=== PATIENT | female | born 1980 | race Caucasian/White ===

== ENCOUNTER 2017-04-13 13:41 | Emergency (ER) | payer SELFPAY ==
[~2017-04-13] VITALS: Ht 154.9 cm; Wt 90.0 kg
[~2017-04-13 13:41] MED LIST: ALBUTEROL2.5 MG/31 IN; AMOXICILLIN500 MG OR; AUGMENTIN875TAB OR; BACTRIM DS1 TAB PO; BIRTH CONTROL; CEPHALEXIN500 M1 OR; CHERATUSSIN OR; DOXYCYCL HYC100 M3 PO; FERROUS SULF324 MG PO; FLAGYL500 MG OR; IRON; LORTAB 5 OR; NO HOME MEDS; PRILOSEC20 MG/CAP PO; ROBITUSSIN AC10 ML OR; ROCEPHIN 2250 MG/VIA IM; SEASONALE OR; SPRINTEC 2828 DAY PO; ULTRAM50 M1 PO; ULTRAM50 MG OR; VIBRAMYCIN100 M1 OR; ZITHROMAX250 MG PO; ZITHROMAX500 MG OR; ZOFRAN ODT4 MG SL
[2017-04-13 14:30] LABS: HEMATOCRIT 33.9 % (37.0-47.0); HEMOGLOBIN 9.8 g/dl (12.0-16.0); IMMATURE GRANULOCYTES 0.3 % (0.0-1.0); MEAN CELL VOLUME 72.4 fL CALC (80.0-100.0); MEAN CORPUSCULAR HGB 20.9 pG CALC (26.0-32.0); MEAN CORPUSCULAR HGB CONC 28.9 g/L CALC (32.0-36.0); NEUT# 8.09 thou/uL (2.00-7.15); RED BLOOD COUNT 4.68 mill/uL (4.20-5.60); RED CELL DISTRI WIDTH 17.1 % (11.5-15.5); URINE BLOOD DIPSTICK NEGATIVE (NEGATIVE); URINE GLUCOSE - DIPSTICK 100 mg/dL (NEGATIVE); URINE KETONE NEGATIVE (NEGATIVE); URINE LEUK ESTERASE TRACE (NEGATIVE); URINE PH 5.5 (4.5-8.0); URINE PROTEIN - DIPSTICK 30 mg/dL (NEG-TRACE); URINE SPECIFIC GRAVITY <=1.005
[2017-04-13 14:34] LABS: URINE BILIRUBIN - DIPSTICK SMALL (NEGATIVE); URINE NITRITE - DIPSTICK POSITIVE (Negative)
[2017-04-13 14:35] LABS: URINE CLARITY TURBID; URINE COLOR ORANGE
[2017-04-13 14:37] LABS: URINE AMORPH SEDIMENT FEW hpf (NONE-FEW); URINE BACTERIA RARE hpf; URINE SQUAMOUS EPITHELIAL CELL FEW EPI/hpf (0-FEW)
[2017-04-13 14:44] LABS: ALBUMIN 4.5 g/dL (3.2-5.0); ALKALINE PHOSPHATASE 71 u/l (38-126); AMYLASE 68 u/l (30-110); ANION GAP 15 (6-22 (CALC)); BILIRUBIN, TOTAL 0.4 mg/dL (0.0-1.4); BUN 9 mg/dL (7-17); BUN/CREATININE RATIO 15 (12-20 (CALC)); CALCIUM 9.5 mg/dL (8.4-10.2); CARBON DIOXIDE 22 mmol/l (22-30); CHLORIDE 104 mmol/l (95-108); CREATININE 0.6 mg/dL (0.5-1.0); GFR > 60 ML/MIN (>=60 (CALC)); GFR FOR AFR.AMER. > 60 ML/MIN (>=60 (CALC)); GLUCOSE 87 mg/dL (65-105); LIPASE 82 u/l (23-300); POTASSIUM 4.1 mmol/l (3.5-5.1); SGOT/AST 20 u/l (14-36); SGPT/ALT 35 u/l (9-52); SODIUM 137 mmol/l (137-146); TOTAL PROTEIN 7.6 g/dL (6.3-8.2)
[2017-04-13] MEDS ORDERED: LORTAB 5-325 MG1 TAB PO (15:24)
[2017-04-13] MEDS ORDERED: BACTRIM DS1 TAB PO (15:24)
[2017-04-13 16:03] VITALS: BP 132/66
== END 2017-04-13 16:09 | disposition home or self-care (01) | DRG 690 ==
LOC: ED 13:41
PROVIDERS: Emergency Medicine
DX: N12 Tubulo-interstitial nephritis, not specified as acute or chronic (principal); B96.20 Unspecified Escherichia coli [E. coli] as the cause of diseases classified elsewhere; F17.210 Nicotine dependence, cigarettes, uncomplicated

== ENCOUNTER 2017-05-15 12:10 | Emergency (ER) | payer SELFPAY ==
[~2017-05-15] VITALS: Ht 154.9 cm; Wt 95.2 kg
[~2017-05-15 12:10] MED LIST changes: +LORTAB 5-325 MG1 TAB PO
[2017-05-15] MEDS ORDERED: PREDNISONE50 MG PO (15:07)
[2017-05-15 15:47] VITALS: BP 113/60
== END 2017-05-15 15:47 | disposition home or self-care (01) | DRG 93 ==
LOC: ED 12:10
DX: R20.9 Unspecified disturbances of skin sensation (principal); E04.9 Nontoxic goiter, unspecified; R01.1 Cardiac murmur, unspecified; F17.210 Nicotine dependence, cigarettes, uncomplicated

== ENCOUNTER 2017-11-06 22:42 | Emergency (ER) | payer OTHER ==
[~2017-11-06] VITALS: Ht 154.9 cm; Wt 97.6 kg
[~2017-11-06 22:42] MED LIST changes: +PREDNISONE50 MG PO
[2017-11-07 00:08] LABS: HEMATOCRIT 33.8 % (37.0-47.0); IMMATURE GRANULOCYTES 0.5 % (0.0-1.0); MEAN CORPUSCULAR HGB 22.5 pG CALC (26.0-32.0); MEAN CORPUSCULAR HGB CONC 29.6 g/L CALC (32.0-36.0); NEUT# 9.05 thou/uL (2.00-7.15); RED BLOOD COUNT 4.45 mill/uL (4.20-5.60); RED CELL DISTRI WIDTH 17.1 % (11.5-15.5)
[2017-11-07 00:11] LABS: URINE BILIRUBIN - DIPSTICK NEGATIVE (NEGATIVE); URINE BLOOD DIPSTICK LARGE (NEGATIVE); URINE COLOR RED; URINE GLUCOSE - DIPSTICK NEGATIVE (NEGATIVE); URINE KETONE NEGATIVE (NEGATIVE); URINE LEUK ESTERASE NEGATIVE (NEGATIVE); URINE NITRITE - DIPSTICK NEGATIVE (Negative); URINE PH 5.5 (4.5-8.0); URINE PROTEIN - DIPSTICK 100 mg/dL (NEG-TRACE); URINE SPECIFIC GRAVITY 1.025; URINE UROBILINOGEN - DIPSTICK 0.2 E.U./dL (0.2)
[2017-11-07 00:20] LABS: URINE CLARITY CLEAR
[2017-11-07 00:22] LABS: URINE BACTERIA MANY hpf; URINE RBC 0-2 RBC/hpf (0-5); URINE SQUAMOUS EPITHELIAL CELL RARE EPI/hpf (0-FEW)
[2017-11-07] MEDS ORDERED: ZANTAC 150 MAX150 MG PO (00:34)
[2017-11-07 00:36] LABS: ALBUMIN 4.1 g/dL (3.2-5.0); ALKALINE PHOSPHATASE 79 u/l (38-126); AMYLASE 42 u/l (30-110); ANION GAP 16 (6-22 (CALC)); BILIRUBIN, TOTAL 0.2 mg/dL (0.0-1.4); BUN 11 mg/dL (7-17); BUN/CREATININE RATIO 15 (12-20 (CALC)); CARBON DIOXIDE 22 mmol/l (22-30); CHLORIDE 107 mmol/l (95-108); CREATININE 0.7 mg/dL (0.5-1.0); GFR > 60 ML/MIN (>=60 (CALC)); GFR FOR AFR.AMER. > 60 ML/MIN (>=60 (CALC)); LIPASE 150 u/l (23-300); POTASSIUM 4.2 mmol/l (3.5-5.1); SGOT/AST 18 u/l (14-36); SGPT/ALT 25 u/l (9-52); SODIUM 140 mmol/l (137-146); TOTAL PROTEIN 6.4 g/dL (6.3-8.2)
[2017-11-07] MEDS ORDERED: PROTONIX40 MG PO (03:23)
[2017-11-07] MEDS ORDERED: CIPROFLOXACN500 MG PO (03:23)
[2017-11-07 03:43] VITALS: BP 102/56
== END 2017-11-07 03:40 | disposition home or self-care (01) | DRG 690 ==
LOC: ED 22:42
PROVIDERS: Emergency Medicine
DX: N39.0 Urinary tract infection, site not specified (principal); R10.11 Right upper quadrant pain; R10.13 Epigastric pain; R11.2 Nausea with vomiting, unspecified
CPT/HCPCS: S0164

== ENCOUNTER 2018-07-24 15:34 | Emergency (ER) | payer SELFPAY ==
[~2018-07-24] VITALS: Ht 154.9 cm; Wt 96.0 kg
[~2018-07-24 15:34] MED LIST changes: +CIPROFLOXACN500 MG PO; +PROTONIX40 MG PO; +ZANTAC 150 MAX150 MG PO
[2018-07-24] MEDS ORDERED: CRESTOR5 M1 PO (15:51)
[2018-07-24 16:37] LABS: HEMATOCRIT 33.9 % (37.0-47.0); HEMOGLOBIN 9.6 g/dl (12.0-16.0); IMMATURE GRANULOCYTES 0.4 % (0.0-5.0); MEAN CELL VOLUME 74.2 fL CALC (80.0-100.0); MEAN CORPUSCULAR HGB CONC 28.3 g/L CALC (32.0-36.0); NEUT# 9.99 thou/uL (2.00-7.15); RED BLOOD COUNT 4.57 mill/uL (4.20-5.60); RED CELL DISTRI WIDTH 17.6 % (11.5-15.5)
[2018-07-24 16:39] LABS: URINE BILIRUBIN - DIPSTICK NEGATIVE (NEGATIVE); URINE BLOOD DIPSTICK NEGATIVE (NEGATIVE); URINE CLARITY CLEAR; URINE COLOR YELLOW; URINE GLUCOSE - DIPSTICK NEGATIVE (NEGATIVE); URINE KETONE NEGATIVE (NEGATIVE); URINE LEUK ESTERASE NEGATIVE (NEGATIVE); URINE NITRITE - DIPSTICK NEGATIVE (Negative); URINE PROTEIN - DIPSTICK TRACE mg/dL (NEG-TRACE); URINE SPECIFIC GRAVITY >=1.030; URINE UROBILINOGEN - DIPSTICK 0.2 E.U./dL (0.2)
[2018-07-24 17:03] LABS: ALBUMIN 4.4 g/dL (3.2-5.0); ALKALINE PHOSPHATASE 69 u/l (38-126); AMYLASE 73 u/l (30-110); ANION GAP 15 (6-22 (CALC)); BILIRUBIN, TOTAL 0.6 mg/dL (0.0-1.4); BUN 7 mg/dL (7-17); BUN/CREATININE RATIO 13 (12-20 (CALC)); CARBON DIOXIDE 22 mmol/l (22-30); CHLORIDE 105 mmol/l (95-108); CREATININE 0.5 mg/dL (0.5-1.0); GFR > 60 ML/MIN (>=60 (CALC)); GFR FOR AFR.AMER. > 60 ML/MIN (>=60 (CALC)); LIPASE 78 u/l (23-300); POTASSIUM 4.4 mmol/l (3.5-5.1); SODIUM 138 mmol/l (137-146)
[2018-07-24 17:06] LABS: SGOT/AST 48 u/l (14-36); TOTAL PROTEIN 7.7 g/dL (6.3-8.2)
[2018-07-24] MEDS ORDERED: BACTRIM DS1 TAB PO (17:32)
[2018-07-24] MEDS ORDERED: PRILOSEC20 MG PO (17:32)
[2018-07-24] MEDS ORDERED: VENTOLIN HFA IN (17:32)
[2018-07-24 17:36] VITALS: BP 141/91
== END 2018-07-24 17:51 | disposition home or self-care (01) | DRG 153 ==
LOC: ED 15:34
PROVIDERS: Family Medicine
DX: J01.90 Acute sinusitis, unspecified (principal); F17.210 Nicotine dependence, cigarettes, uncomplicated; R10.13 Epigastric pain; J98.01 Acute bronchospasm; R05 Cough; R51 Headache; R42 Dizziness and giddiness; R09.81 Nasal congestion; R11.0 Nausea

== ENCOUNTER 2018-11-09 12:31 | Emergency (ER) | payer SELFPAY ==
[~2018-11-09] VITALS: Ht 154.9 cm; Wt 85.0 kg
[~2018-11-09 12:31] MED LIST changes: +CRESTOR5 M1 PO; +PRILOSEC20 MG PO; +VENTOLIN HFA IN
[2018-11-09] MEDS ORDERED: VOLTAREN1%GEL TOP (14:36)
[2018-11-09] MEDS ORDERED: MOTRIN400 MG PO (14:36)
[2018-11-09] MEDS ORDERED: CYCLOBENZAPR5 MG PO (14:36)
[2018-11-09 14:57] VITALS: BP 124/77
[2018-11-09] MEDS ORDERED: ZPAK PO (14:59)
== END 2018-11-09 14:57 | disposition home or self-care (01) | DRG 563 ==
LOC: ED 12:31
DX: S29.012A Strain of muscle and tendon of back wall of thorax, initial encounter (principal); E78.5 Hyperlipidemia, unspecified; F17.210 Nicotine dependence, cigarettes, uncomplicated; X50.9XXA Other and unspecified overexertion or strenuous movements or postures, initial encounter

== ENCOUNTER 2018-12-09 17:46 | Emergency (ER) | payer SELFPAY ==
[~2018-12-09] VITALS: Ht 154.9 cm; Wt 91.0 kg
[~2018-12-09 17:46] MED LIST changes: +CYCLOBENZAPR5 MG PO; +MOTRIN400 MG PO; +VOLTAREN1%GEL TOP; +ZPAK PO
[2018-12-09 18:33] LABS: URINE BILIRUBIN - DIPSTICK NEGATIVE (NEGATIVE); URINE BLOOD DIPSTICK NEGATIVE (NEGATIVE); URINE COLOR YELLOW; URINE GLUCOSE - DIPSTICK NEGATIVE (NEGATIVE); URINE KETONE NEGATIVE (NEGATIVE); URINE LEUK ESTERASE NEGATIVE (NEGATIVE); URINE NITRITE - DIPSTICK NEGATIVE (Negative); URINE PROTEIN - DIPSTICK NEGATIVE (NEG-TRACE); URINE UROBILINOGEN - DIPSTICK 0.2 E.U./dL (0.2)
[2018-12-09 18:37] LABS: BARBITURATES NEGATIVE (NEGATIVE); COCAINE NEGATIVE (NEGATIVE); METHADONE NEGATIVE (NEGATIVE); OXCYCODONE NEGATIVE (NEGATIVE); TETRAHYDROCANNABIONOL NEGATIVE (NEGATIVE); TRICYLIC ANTIDEPRESSANTS POSITIVE (NEGATIVE)
[2018-12-09] MEDS ORDERED: TRAMADOL HYDROC50 MG PO (21:16)
[2018-12-09] MEDS ORDERED: ROBITUSSIN AC10 ML PO (21:16)
[2018-12-09 21:25] VITALS: BP 106/72
== END 2018-12-09 21:25 | disposition home or self-care (01) | DRG 185 ==
LOC: ED 17:46
DX: S22.41XA Multiple fractures of ribs, right side, initial encounter for closed fracture (principal); R05 Cough; M54.5 Low back pain; X50.0XXA Overexertion from strenuous movement or load, initial encounter; Y92.009 Unspecified place in unspecified non-institutional (private) residence as the place of occurrence of the external cause; F17.210 Nicotine dependence, cigarettes, uncomplicated

== ENCOUNTER 2019-02-07 08:32 | Emergency (ER) | payer SELFPAY ==
[~2019-02-07] VITALS: Ht 154.9 cm; Wt 70.0 kg
[~2019-02-07 08:32] MED LIST changes: +ROBITUSSIN AC10 ML PO; +TRAMADOL HYDROC50 MG PO
[2019-02-07] MEDS ORDERED: MAPAP500 M1 PO (09:12)
[2019-02-07] MEDS ORDERED: MOTRIN400 MG/TAB PO (09:13)
[2019-02-07] MEDS ORDERED: VITAMIN D1000 UNIT PO (09:14)
[2019-02-07] MEDS ORDERED: MUCINEX600 MG PO (09:14)
[2019-02-07] MEDS ORDERED: FERROUS FUM324 MG PO (09:14)
[2019-02-07 09:43] LABS: HEMATOCRIT 35.6 % (37.0-47.0); HEMOGLOBIN 10.4 g/dl (12.0-16.0); IMMATURE GRANULOCYTES 0.6 % (0.0-5.0); MEAN CELL VOLUME 77.4 fL CALC (80.0-100.0); MEAN CORPUSCULAR HGB 22.6 pG CALC (26.0-32.0); MEAN CORPUSCULAR HGB CONC 29.2 g/L CALC (32.0-36.0); NEUT# 11.42 thou/uL (2.00-7.15); RED BLOOD COUNT 4.6 mill/uL (4.20-5.60)
[2019-02-07] MEDS ORDERED: CRESTOR20 MG PO (09:47)
[2019-02-07 10:09] LABS: ANION GAP 13 (6-22 (CALC)); BUN 8 mg/dL (7-17); BUN/CREATININE RATIO 16 (12-20 (CALC)); CARBON DIOXIDE 23 mmol/l (22-30); CHLORIDE 106 mmol/l (95-108); CREATININE 0.5 mg/dL (0.5-1.0); GFR > 60 ML/MIN (>=60 (CALC)); GFR FOR AFR.AMER. > 60 ML/MIN (>=60 (CALC)); POTASSIUM 4.6 mmol/l (3.5-5.1); SODIUM 138 mmol/l (137-146)
[2019-02-07] MEDS ORDERED: PREDNISONE50 MG PO (10:36)
[2019-02-07] MEDS ORDERED: FLONASE AL50 MCG/ACT (10:36)
[2019-02-07] MEDS ORDERED: DOXYCYC MONO100 M2 PO (10:36)
[2019-02-07 10:48] VITALS: BP 112/56
[2019-02-07] MEDS ORDERED: CYCLOBENZAPR5 MG PO (10:52)
== END 2019-02-07 10:56 | disposition home or self-care (01) | DRG 203 ==
LOC: ED 08:32
PROVIDERS: Family Medicine
DX: J40 Bronchitis, not specified as acute or chronic (principal); R09.82 Postnasal drip; F17.210 Nicotine dependence, cigarettes, uncomplicated

== ENCOUNTER 2019-09-20 | Emergency (ER) | payer SELFPAY ==
[~2019-09-20] MED LIST changes: +CRESTOR20 MG PO; +DOXYCYC MONO100 M2 PO; +FERROUS FUM324 MG PO; +FLONASE AL50 MCG/ACT; +MAPAP500 M1 PO; +MOTRIN400 MG/TAB PO; +MUCINEX600 MG PO; +VITAMIN D1000 UNIT PO
[2019-09-20] MEDS ORDERED: AMOX/K CLAV875 M1 PO (15:43)
[2019-09-20] MEDS ORDERED: MEDDOSEPAK PO (17:30)
[2019-09-20] MEDS ORDERED: ZITHROMAX250 MG PO (17:30)
[2019-09-20] MEDS ORDERED: TAM75CAP PO (17:30)
[2019-09-20] MEDS ORDERED: PROVENTIL108 MCG/AC IN (17:30)
== END 2019-09-20 17:50 | disposition home or self-care (01) | DRG 195 ==
DX: J10.1 Influenza due to other identified influenza virus with other respiratory manifestations (principal); J45.909 Unspecified asthma, uncomplicated; J32.9 Chronic sinusitis, unspecified; F17.210 Nicotine dependence, cigarettes, uncomplicated

== ENCOUNTER 2019-10-18 | Emergency (ER) | payer OTHER ==
[~2019-10-18] MED LIST changes: +AMOX/K CLAV875 M1 PO; +MEDDOSEPAK PO; +PROVENTIL108 MCG/AC IN; +TAM75CAP PO
== END 2019-10-18 21:13 | disposition home or self-care (01) | DRG 605 ==
DX: S50.11XA Contusion of right forearm, initial encounter (principal); F17.210 Nicotine dependence, cigarettes, uncomplicated; W22.8XXA Striking against or struck by other objects, initial encounter; Y93.89 Activity, other specified; Y92.89 Other specified places as the place of occurrence of the external cause; Y99.0 Civilian activity done for income or pay

== ENCOUNTER 2021-04-20 14:51 | Emergency (ER) | payer SELFPAY ==
[~2021-04-20] VITALS: Ht 154.9 cm; Wt 104.0 kg
[2021-04-20 16:18] LABS: HEMATOCRIT 31.1 % (37.0-47.0); HEMOGLOBIN 8.6 g/dl (12.0-16.0); IMMATURE GRANULOCYTES 0.2 % (0.0-5.0); MEAN CELL VOLUME 74.4 fL CALC (80.0-100.0); MEAN CORPUSCULAR HGB 20.6 pG CALC (26.0-32.0); MEAN CORPUSCULAR HGB CONC 27.7 g/dL CAL (32.0-36.0); NEUT# 10.43 thou/uL (2.00-7.15); RED BLOOD COUNT 4.18 mill/uL (4.20-5.60); RED CELL DISTRI WIDTH 16.6 % (11.5-15.5)
[2021-04-20 16:32] LABS: ALBUMIN 3.8 g/dL (3.2-5.0); ALKALINE PHOSPHATASE 64 u/l (38-126); AMYLASE 60 u/l (30-110); ANION GAP 12 (6-22 (CALC)); BUN 7 mg/dL (7-17); BUN/CREATININE RATIO 14 (12-20 (CALC)); CARBON DIOXIDE 25 mmol/l (22-30); CHLORIDE 102 mmol/l (95-108); CREATININE 0.5 mg/dL (0.5-1.0); GFR > 60 ML/MIN (>=60 (CALC)); GFR FOR AFR.AMER. > 60 ML/MIN (>=60 (CALC)); LIPASE 93 u/l (23-300); POTASSIUM 3.7 mmol/l (3.5-5.1); SGOT/AST 22 u/l (14-36); SODIUM 135 mmol/l (137-146); TOTAL PROTEIN 6.8 g/dL (6.3-8.2)
[2021-04-20 16:42] LABS: MYOGLOBIN 16 ng/mL (0 - 62)
[2021-04-20 16:43] LABS: BILIRUBIN, TOTAL 0.2 mg/dL (0.0-1.4)
[2021-04-20 18:28] LABS: URINE BILIRUBIN - DIPSTICK NEGATIVE (NEGATIVE); URINE BLOOD DIPSTICK MODERATE (NEGATIVE); URINE COLOR YELLOW; URINE GLUCOSE - DIPSTICK NEGATIVE (NEGATIVE); URINE KETONE NEGATIVE (NEGATIVE); URINE LEUK ESTERASE NEGATIVE (NEGATIVE); URINE PROTEIN - DIPSTICK NEGATIVE (NEG-TRACE); URINE UROBILINOGEN - DIPSTICK 0.2 E.U./dL (0.2)
[2021-04-20 18:29] LABS: URINE NITRITE - DIPSTICK NEGATIVE (Negative)
[2021-04-20 18:38] LABS: URINE RBC 0-2 RBC/hpf (0-5); URINE SQUAMOUS EPITHELIAL CELL MODERATE EPI/hpf (0-FEW)
[2021-04-20] MEDS ORDERED: LOMOTIL2.5 MG PO (18:47)
[2021-04-20] MEDS ORDERED: REGLAN10 MG PO (18:47)
[2021-04-20] MEDS ORDERED: PREVACID30 M3 PO (18:47)
[2021-04-20 18:49] VITALS: BP 147/63
== END 2021-04-20 19:14 | disposition home or self-care (01) | DRG 392 ==
LOC: ED 14:51
PROVIDERS: Emergency Medicine
DX: K52.9 Noninfective gastroenteritis and colitis, unspecified (principal); K44.9 Diaphragmatic hernia without obstruction or gangrene; E78.5 Hyperlipidemia, unspecified; F17.210 Nicotine dependence, cigarettes, uncomplicated; Z20.822 Contact with and (suspected) exposure to COVID-19
CPT/HCPCS: Q9967

== ENCOUNTER 2021-12-31 22:07 | Emergency (ER) | payer SELFPAY ==
[~2021-12-31] VITALS: Ht 154.9 cm; Wt 91.0 kg
[~2021-12-31 22:07] MED LIST changes: +LOMOTIL2.5 MG PO; +PREVACID30 M3 PO; +REGLAN10 MG PO
[2021-12-31 22:21] VITALS: BP 126/68
[2021-12-31 22:30] VITALS: BP 112/73
[2021-12-31 22:59] LABS: HEMATOCRIT 33.5 % (37.0-47.0); HEMOGLOBIN 9.3 g/dl (12.0-16.0); IMMATURE GRANULOCYTES 0.2 % (0.0-5.0); MEAN CORPUSCULAR HGB 21.1 pG CALC (26.0-32.0); MEAN CORPUSCULAR HGB CONC 27.8 g/dL CAL (32.0-36.0); NEUT# 8.82 thou/uL (2.00-7.15); RED BLOOD COUNT 4.41 mill/uL (4.20-5.60); RED CELL DISTRI WIDTH 18.8 % (11.5-15.5)
[2021-12-31 23:08] VITALS: BP 120/69
[2021-12-31 23:15] VITALS: BP 105/63
[2021-12-31 23:19] LABS: ALBUMIN 4.1 g/dL (3.2-5.0); ALKALINE PHOSPHATASE 72 u/l (38-126); ANION GAP 13 (6-22 (CALC)); BILIRUBIN, TOTAL 0.2 mg/dL (0.0-1.4); BUN 10 mg/dL (7-17); BUN/CREATININE RATIO 18 (12-20 (CALC)); CARBON DIOXIDE 25 mmol/l (22-30); CHLORIDE 105 mmol/l (95-108); CREATININE 0.6 mg/dL (0.5-1.0); GFR > 60 ML/MIN (>=60 (CALC)); GFR FOR AFR.AMER. > 60 ML/MIN (>=60 (CALC)); POTASSIUM 4.2 mmol/l (3.5-5.1); SGOT/AST 21 u/l (14-36); SODIUM 138 mmol/l (137-146); TOTAL PROTEIN 6.8 g/dL (6.3-8.2)
[2021-12-31 23:45] VITALS: BP 119/66
[2021-12-31 23:50] LABS: TSH, 3RD GENERATION 1.38 uIU/mL (0.47 - 4.68)
[2022-01-01] MEDS ORDERED: FLONASE AL50 MCG/ACT (00:20)
[2022-01-01] MEDS ORDERED: ALLEGRA-D 2424 HOUR PO (00:20)
[2022-01-01] MEDS ORDERED: BACTRIM DS1 TAB PO (00:20)
[2022-01-01 00:51] VITALS: BP 119/66
== END 2022-01-01 01:15 | disposition home or self-care (01) | DRG 153 ==
LOC: ED 22:07
PROVIDERS: Family Medicine
DX: J32.9 Chronic sinusitis, unspecified (principal); L29.9 Pruritus, unspecified; E78.5 Hyperlipidemia, unspecified; F17.200 Nicotine dependence, unspecified, uncomplicated

== ENCOUNTER 2023-05-29 18:08 | Emergency (ER) | payer OTHER ==
[~2023-05-29] VITALS: Ht 154.9 cm; Wt 92.0 kg
[2023-05-29] VITALS (10 sets, daily range): BP systolic 101–125; BP diastolic 56–78
[~2023-05-29 18:08] MED LIST changes: +ALLEGRA-D 2424 HOUR PO
[2023-05-29] MEDS ORDERED: VOLTAREN - GENE75 MG PO (20:14)
== END 2023-05-29 20:38 | disposition home or self-care (01) | DRG 552 ==
LOC: ED 18:08
DX: S16.1XXA Strain of muscle, fascia and tendon at neck level, initial encounter (principal); E78.5 Hyperlipidemia, unspecified; F17.210 Nicotine dependence, cigarettes, uncomplicated; V43.53XA Car driver injured in collision with pick-up truck in traffic accident, initial encounter

== ENCOUNTER 2024-11-13 18:51 | Emergency (ER) | payer SELFPAY ==
[~2024-11-13] VITALS: Ht 154.9 cm; Wt 92.0 kg
[~2024-11-13 18:51] MED LIST changes: +VOLTAREN - GENE75 MG PO
[2024-11-13] MEDS ORDERED: ALBUTEROL SULFATE 2.5 MG VIAL IN ONE (19:25)
[2024-11-13] MEDS ORDERED: IPRATROPIUM-Albuterol 0.5MG-2.5MG/3 ML NEB ONE (19:25)
[2024-11-13] MEDS ORDERED: predniSONE 20 MG/TAB PO ONE (19:25)
[2024-11-13] MEDS ORDERED: DOXYCYCLINE100 MG PO (21:10)
[2024-11-13] MEDS ORDERED: PREDNISONE50 MG PO (21:10)
[2024-11-13 21:25] VITALS: BP 129/80
== END 2024-11-13 21:25 | disposition home or self-care (01) | DRG 190 ==
LOC: ED 18:51
DX: J44.1 Chronic obstructive pulmonary disease with (acute) exacerbation (principal); J18.9 Pneumonia, unspecified organism; J44.0 Chronic obstructive pulmonary disease with (acute) lower respiratory infection; E78.5 Hyperlipidemia, unspecified; F17.200 Nicotine dependence, unspecified, uncomplicated; Z20.822 Contact with and (suspected) exposure to COVID-19

== ENCOUNTER 2024-12-18 13:15 | Emergency (ER) | payer SELFPAY ==
[2024-12-18] VITALS (14 sets, daily range): BP systolic 98–125; BP diastolic 60–76
[~2024-12-18] VITALS: Ht 154.9 cm; Wt 90.9 kg
[~2024-12-18 13:15] MED LIST changes: +DOXYCYCLINE100 MG PO
[2024-12-18] MEDS ORDERED: ONDANSETRON HCl 4 MG/2 ML SDV IV STA (13:26)
[2024-12-18] MEDS ORDERED: DIATRIZOATE MEGLUMINE & SODIUM 30 ML/BTL PO ONE (13:30)
[2024-12-18 14:07] LABS: BASO% 0.5 % (0-3); EOS% 4.8 % (0-8); IMMATURE GRANULOCYTES 0.1 % (0.0-5.0); LYMPH% 21.3 % (15-41); MEAN CORPUSCULAR HGB CONC 30.6 g/dL CAL (32.0-36.0); MONO% 7.7 % (2-13); NEUT# 6.61 thou/uL (2.00-7.15); NEUT% 65.6 % (42-76); RED BLOOD COUNT 4.81 mill/uL (4.20-5.60); RED CELL DISTRI WIDTH 15.2 % (11.5-15.5)
[2024-12-18 14:09] LABS: HEMATOCRIT 42.5 % (37.0-47.0); MEAN CELL VOLUME 88.4 fL CALC (80.0-100.0)
[2024-12-18 14:25] LABS: URINE BILIRUBIN - DIPSTICK Negative (NEGATIVE); URINE BLOOD DIPSTICK Negative (NEGATIVE); URINE GLUCOSE - DIPSTICK Negative (NEGATIVE); URINE KETONE Negative (NEGATIVE); URINE LEUK ESTERASE Negative (NEGATIVE); URINE NITRITE - DIPSTICK Negative (Negative); URINE PROTEIN - DIPSTICK Negative (NEG-TRACE); URINE UROBILINOGEN - DIPSTICK 0.2 E.U./dL (0.2)
[2024-12-18 14:26] LABS: URINE COLOR Yellow
[2024-12-18 14:27] LABS: ALBUMIN 4.2 g/dL (3.2-5.0); ALKALINE PHOSPHATASE 59 u/l (38-126); ANION GAP 13 (6-22 (CALC)); BUN 11 mg/dL (7-17); BUN/CREATININE RATIO 20 (12-20 (CALC)); CARBON DIOXIDE 23 mmol/l (22-30); CHLORIDE 103 mmol/l (95-108); CREATININE 0.6 mg/dL (0.5-1.0); ESTIMATED GFR 113 ML/MIN (>=90 (CALC)); LIPASE 91 u/l (23-300); SGOT/AST 30 u/l (14-36); SODIUM 135 mmol/l (137-146)
[2024-12-18 14:29] LABS: BILIRUBIN, TOTAL 0.4 mg/dL (0.02-1.3)
[2024-12-18] MEDS ORDERED: ALUM & MAG HYDROX-SIMETHICONE 30 ML PO ONE (16:40)
[2024-12-18] MEDS ORDERED: FAMOTIDINE 10MG/ML 2ML SDV IV ONE (16:40)
[2024-12-18] MEDS ORDERED: LIDOCAINE VISCOUS 2% 15 ML UDC PO ONE (16:40)
== END 2024-12-18 17:59 | disposition home or self-care (01) | DRG 392 ==
LOC: ED 13:15
PROVIDERS: Nurse Practitioner Acute Care
DX: K21.9 Gastro-esophageal reflux disease without esophagitis (principal); E66.9 Obesity, unspecified; E78.5 Hyperlipidemia, unspecified; F17.200 Nicotine dependence, unspecified, uncomplicated
CPT/HCPCS: J2405; Q9967